=== PATIENT | female | born 1995 | race Caucasian/White ===

== ENCOUNTER 2022-04-02 08:23 | Outpatient (CLI) | payer OTHER | END 2022-04-02 08:24 | disposition home or self-care (01) | LOC: CSHLAB 08:23 | PROVIDERS: ATTEND Family Medicine | DX: Z20.822 Contact with and (suspected) exposure to COVID-19 (principal) | CPT/HCPCS: 87811 ==

== ENCOUNTER 2022-04-02 09:39 | Inpatient (IN) | payer OTHER ==
[2022-04-02 10:25] VITALS: BMI 30.3
[2022-04-02] MEDS ORDERED: Promethazine HCl 25 MG/ML VIAL IM PRN ×3 (10:58→17:52)
[2022-04-02] MEDS ORDERED: Butorphanol Tartrate 1 MG/ML VIAL SLOW IVP PRN (10:58)
[2022-04-02] MEDS ORDERED: Acetaminophen 500 MG TAB PO PRN (10:58)
[2022-04-02] MEDS ORDERED: Lidocaine 1% (PF) 30 ML VIAL SC PRN (10:58)
[2022-04-02] MEDS ORDERED: Ibuprofen 800 MG TAB PO PRN (10:58)
[2022-04-02] MEDS ORDERED: Misoprostol 200 MCG TAB PR PRN (10:58)
[2022-04-02] MEDS ORDERED: Carboprost 250 MCG/ML AMP IM PRN (10:58)
[2022-04-02] MEDS ORDERED: Methylergonovine 0.2 MG/ML VIAL IM PRN (10:58)
[2022-04-02] MEDS ORDERED: HYDROcodone/Acetaminophen 5/325 mg Tablet PO PRN ×2 (10:58→17:52)
[2022-04-02] MEDS ORDERED: Ondansetron PF 4 MG/2 ML Vial IVP PRN ×3 (10:58→17:52)
[2022-04-02] MEDS ORDERED: Diphenoxylate HCl/Atropine Tablet PO PRN (10:58)
[2022-04-02] MEDS ORDERED: hydrALAZINE 20 MG/ML VIAL SLOW IVP PRN ×2 (10:58→17:52)
[2022-04-02] MEDS ORDERED: NS w/ Oxytocin 30 units 500 ML IV SCH ×2 (11:00)
[2022-04-02] MEDS: Lactated Ringer's 1,000 ML IV SCH ×2 (11:00→15:16)
[2022-04-02] MEDS ORDERED: Penicillin G Potassium 5 MILL.UNITS in Sodium Chloride 0.9% 100 ML IVPB SCH (11:00)
[2022-04-02] MEDS ORDERED: Penicillin G Potassium 5 MILL.UNITS VIAL ONE (11:20)
[2022-04-02 11:30] LABS: Hemoglobin 10.9 g/dL (12.0-15.5); Mean Corpuscular HGB CONC 32.7 g/dL (32.0-36.0); Mean Corpuscular Hemoglobin 27.2 pg (27.0-33.0); Mean Platelet Volume 11.9 fl (7.4-10.4); Platelet Count 221 10x3/uL (150-450); RBC Distribution Width 12.8 % (11.5-14.5); Red Blood Cell (RBC) Count 4.01 10x6/uL (3.90-5.03); White Blood Cell (WBC) Count 9.2 10x3/uL (3.5-10.5)
[2022-04-02 11:59] LABS: Hep B Surf Ag Non-Reactive S/CO (NonReactive); Syphilis Antibody Nonreactive (Nonreactive); Syphilis Antibody Index 0.05 S/CO (<1.00 Non-Reactive)
[2022-04-02 12:13] LABS: HBSAg Index 0.21 S/CO (0-0.99)
[2022-04-02] MEDS ORDERED: Fentanyl 2 mcg/Bup 0.1% Cadd 100 ML ONE (12:23)
[2022-04-02] MEDS ORDERED: ePHEDrine Sulfate 50 MG/10 ML VIAL SLOW IVP PRN (13:20)
[2022-04-02] MEDS ORDERED: Moisturizing Cream (Eucerin) 113 GM JAR TOP PRN (13:20)
[2022-04-02] MEDS ORDERED: Acetaminophen 325 MG TAB PO PRN (13:20)
[2022-04-02] MEDS ORDERED: Lactated Ringer's 500 ML IV PRN (13:20)
[2022-04-02] MEDS ORDERED: diphenhydrAMINE 50 MG/ML VIAL IVP PRN (13:20)
[2022-04-02] MEDS ORDERED: Naloxone HCl 0.4 mg/ml Vial IVP PRN ×2 (13:20)
[2022-04-02] MEDS ORDERED: Communication Order-Pharmacy FS SCH (13:30)
[2022-04-02] MEDS ORDERED: Penicillin G 2.5 MILL.units 2.5 MILL.UNITS in Premix Bag 1 BAG IVPB SCH (15:30)
[2022-04-02] MEDS ORDERED: Milk Of Magnesia 30 ML UDCUP PO PRN (17:52)
[2022-04-02] MEDS ORDERED: diphenhydrAMINE 25 MG CAP PO PRN (17:52)
[2022-04-02] MEDS ORDERED: Lanolin Ointment 7 GM TUBE TOP PRN (17:52)
[2022-04-02] MEDS ORDERED: Bisacodyl 10 MG SUPP PR PRN (17:52)
[2022-04-02] MEDS: Docusate 100 MG CAP PO SCH (21:27)
[2022-04-02] MEDS ORDERED: Ibuprofen 800 MG TAB PO SCH (22:00)
[2022-04-03] MEDS: Ibuprofen 800 MG TAB PO SCH ×3 (00:26→19:39)
[2022-04-03] MEDS ORDERED: Ferrous Sulfate 325 MG TAB PO SCH (08:00)
[2022-04-03] MEDS: Docusate 100 MG CAP PO SCH (08:39)
[2022-04-03] MEDS ORDERED: Prenatal Vitamin 1 TAB PO SCH (09:00)
[2022-04-03 16:29] VITALS: BP 117/68; TEMP 98.4
[2022-04-03] MEDS ORDERED: Boostrix 0.5 ML (Tdap) VIAL IM ONE (17:52)
== END 2022-04-03 19:45 | disposition home or self-care (01) | DRG 807 ==
LOC: EEVIPCON 09:39 → CSHLD/OP 09:39 → CSHLD 14:44 → CSHPP 18:05
PROVIDERS: ADMIT Family Medicine; ATTEND Family Medicine
PROC: 10E0XZZ Delivery of Products of Conception, External Approach (ICD-10-PCS; principal; 2022-04-02)
DX: O42.02 Full-term premature rupture of membranes, onset of labor within 24 hours of rupture (principal); Z37.0 Single live birth; Z3A.39 39 weeks gestation of pregnancy; O99.824 Streptococcus B carrier state complicating childbirth; Z20.822 Contact with and (suspected) exposure to COVID-19
CPT/HCPCS: 36415; 51702; 85027; 86780; 86850; 86900; 86901; 87340; 87811; 99285; J2540; J2590; J3490; J7120